=== PATIENT | female | born 1955 | race Caucasian/White ===

== ENCOUNTER 2019-05-21 15:54 | Outpatient (CLI) | payer OTHER ==
[2016-10-18 12:14] VITALS: BP 130/68
--- NOTE | 2019-05-24 16:41 | Diagnostic Imaging Report ---
TOMAS MORGAN [facility] [address] [facility].[address] [address] Report Submission Date: May 21, 2019 4:30:14 PM CDT Patient Study Name: JUANA ORTEGA Date: May 21, 2019 3:59:46 PM CDT Modality Type: DX Gender: F Description: TIBIA FIBULA 2 VIEW : 53 Institution: [facility] Physician: TOMAS MORGAN Exam: Left leg. History: Fall. AP and lateral view of the left leg are submitted. Acute fractures through the distal tibia and fibula are noted. No other signs of fracture or dislocations are identified. Impression: Acute fracture of the distal tibia and fibula. Electronically signed on May 21, 2019 4:30:14 PM CDT by: Lonnie ARNOLD
--- NOTE | 2019-05-24 16:42 | Diagnostic Imaging Report ---
TOMAS MORGAN [facility] [address] [facility] [address] [address] Report Submission Date: May 21, 2019 4:29:39 PM CDT Patient Study Name: JUANA ORTEGA Date: May 21, 2019 3:59:46 PM CDT Modality Type: DX Gender: F Description: ANKLE 3 VIEWS OR MORE : 53 Institution: [facility] Physician: TOMAS MORGAN Exam: Left ankle. History: Fall. AP, lateral and mortise view of the left ankle are submitted. Acute fractures through the distal tibia and fibula are noted with disruption of the ankle mortise noted. Soft tissue swelling is identified. Impression: Bimalleolar fracture with destruction of the ankle mortise. Electronically signed on May 21, 2019 4:29:39 PM CDT by: Lonnie ARNOLD
--- NOTE | 2019-05-24 16:43 | Diagnostic Imaging Report ---
TOMAS MORGAN [facility] [address] [facility].[address] [address] Report Submission Date: May 21, 2019 4:28:57 PM CDT Patient Study Name: JUANA ORTEGA Date: May 21, 2019 3:59:46 PM CDT Modality Type: DX Gender: F Description: FOOT 3 VIEWS OR MORE : 53 Institution: [facility] Physician: TOMAS MORGAN Exam: Left foot. History: Fall 2 weeks ago. AP, lateral and oblique view of the left foot are submitted. A fracture through the distal fibula is is noted . Fracture through the medial malleolus is also identified. No other signs of fracture or dislocation is seen. Spur off the plantar surface of the calcaneus is noted. Soft tissue swelling over the foot is noted. Impression: Diffuse osteopenia. Fractures of the ankle. Heel spur. No foot fractures are identified. Electronically signed on May 21, 2019 4:28:57 PM CDT by: Lonnie ARNOLD
== END 2019-05-21 16:04 | disposition home or self-care (01) ==
LOC: RAD 15:54
PROVIDERS: ATTEND Podiatrist Foot & Ankle Surgery
DX: S99.912A Unspecified injury of left ankle, initial encounter (principal); R58 Hemorrhage, not elsewhere classified; X50.9XXA Other and unspecified overexertion or strenuous movements or postures, initial encounter; Y99.9 Unspecified external cause status
CPT/HCPCS: 73590; 73610; 73630

== ENCOUNTER 2019-05-21 17:18 | Emergency (ER) | payer OTHER ==
[2019-05-21] MEDS ORDERED: ORPHENADRINE CITRATE 60 MG/2 ML ML IV ONE (17:43)
--- NOTE | 2019-05-21 17:44 | ED Physician Documentation ---
Lower Extremity Problem - HISTORIAN Historian: patient - HPI Stated Complaint: L ankle pain Chief Complaint: Lower Extremity Problem Additional Information: Patient presents to ED with left ankle pain. Patient was seen by Dr. Kline today in clinic. Xrays revealed the left ankle fracture sustained on May 06, 2019 was misaligned and needed reduction. Location of Injury: L ankle Onset: days ago (15) Timing: still present, worse since Duration: constant Where: home Severity: moderate Quality: pain Exacerbated By: walking Relieved By: rest Associated Symptoms: denies: chest pain, shortness of breath - ROS CONST: no problems MS/SKIN/LYMPH: none CVS/RESP: none GI/: none EYES/ENT: none - PAST HX Past History: none Other History: other (copd) Surgeries/Procedures: none Allergies/Adverse Reactions: Allergies Allergy/AdvReac Type Severity Reaction Status Date / Time No Known Allergies Allergy Verified 05/21/19 18:56 - SOCIAL HX Smoking History: cigarettes, greater than 1 pack/day Alcohol Use: none Drug Use: none - FAMILY HX Family History: none - VITAL SIGNS Vital Signs: Vital Signs Temp Pulse Resp BP Pulse Ox 79 15 97/65 97 05/21/19 17:18 05/21/19 17:18 05/21/19 17:18 05/21/19 17:18 - REVIEWED ASSESSMENTS Nursing Assessment Reviewed: Yes Vitals Reviewed: Yes Progress - Progress Progress: Discussed with Dr. Kline. Plan; Conscious sedation for reduction of left ankle. ED Results Lab/Radiology - Orders Orders: ED Orders Category Date Time Status Place IV Lock 1T Care 05/21/19 17:30 Active CHEST 2VIEW [RAD] Stat Exams 05/21/19 Completed LEFT ANKLE [ANKLE 3 VIEWS OR MORE] [RAD] Stat Exams 05/21/19 Ordered CBC/PLATELET/DIFF Routine Lab 05/21/19 Ordered CMP Routine Lab 05/21/19 Ordered 0.9 % Sodium Chloride [Normal Saline] 1,000 ml Med 05/21/19 18:41 Active IV Q1H Midazolam HCl/Pf [Versed] Med 05/21/19 17:58 Once 1 mg IVP NOW ONE Midazolam HCl/Pf [Versed] Med 05/21/19 17:59 Discontinued 5 mg .ROUTE .STK-MED ONE Orphenadrine Citrate [Norflex] Med 05/21/19 17:43 Once 60 mg IV NOW ONE fentaNYL CITRATE/PF [Sublimaze] Med 05/21/19 17:58 Once 75 mcg IV NOW ONE Oxygen Daily Oxygen 05/21/19 18:00 Ordered EKG WITH COMPARISON Stat Ther 05/21/19 Completed Lower Extremity Problem - EXAM General Appearance: no distress Hips: bilateral hip: non-tender, normal inspection, normal range of motion, no evidence of injury Legs: bilateral: non-tender, normal inspection, normal range of motion, no evidence of injury Knees: bilateral: non-tender, normal inspection, normal range of motion, no evidence of injury Ankle: right: non-tender, normal inspection, normal range of motion, no evidence of injury, left: ecchymosis, pain, swelling Foot: right foot: non-tender, normal inspection, normal range of motion, no evidence of injury, left foot: ecchymosis, swelling Neuro/Tendon: normal sensation EENT: JESSEE RESPIRATORY: no resp distress, wheezes (scattered occasional wheeze bilaterall) CVS: reg rate & rhythm, heart sounds normal JOINT: unable to bear weight VASCULAR: no vascular compromise, pulses full/equal NEURO/PSYCH: oriented X3, mood/affect nml SKIN: warm/dry BACK: normal inspection Discharge Clincal Impression: Closed left ankle fracture Qualifiers: Encounter type: subsequent encounter Fracture healing: with malunion Qualified Code(s): S82.892P - Other fracture of left lower leg, subsequent encounter for closed fracture with malunion Referrals: Michael Duarte MD [Primary Care Provider] - 2 Days Additional Instructions: 1. Keep foot elevated at rest. Do not bear weight on left leg. 2. Apply Ice behind left knee to reduce swelling 3. Do not take any aspirin products 4. Follow up with Dr. Kline tomorrow. They will call you with a time 5. Return to ER for new or worsening symptoms Condition: Stable Disposition: 01 HOME, SELF-CARE Decision to Admit: NO Date of Decison to Admit: 05/21/19 Decision Time: 19:19
[2019-05-21] MEDS ORDERED: fentaNYL CITRATE/PF 100 MCG/2 ML INJ. IV ONE (17:58)
[2019-05-21] MEDS ORDERED: MIDAZOLAM HCL 2 MG/2 ML VIAL IVP ONE (17:58)
[2019-05-21] MEDS ORDERED: MIDAZOLAM HCL 5 MG/5 ML VIAL ONE (17:59)
--- NOTE | 2019-05-21 18:38 | Diagnostic Imaging Report ---
PATIENT MR#: [id number] PATIENT PATIENT NAME: PARENT, JUANA Garay DATE OF : 1955 REFERRING PHYSICIAN: Luci Menchaca EXAM DATE: 05/21/2019 ACCESSION NUMBER: [id number] EXAM DESCRIPTION: CHEST 2VIEW Exam: Chest two views. History: Chronic cough. No previous studies are available for comparison. Lung franco are very well aerated without eric consolidation or effusion. Heart and mediastinal con tour are normal. Degenerative changes in the thoracic spine are noted. Impression: No eric consolidation or effusion Read by: Dr. Lonnie Govea Transcribed by: Transcribed Date: Electronically signed by: Dr. Lonnie Govea Date signed: 05/21/2019 6:37:34 PM
[2019-05-21] MEDS ORDERED: 0.9 % SODIUM CHLORIDE 1,000 ML IV ONE (18:41)
[2019-05-21 19:39] LABS: BASOPHILS % 0.4 % (0.0-1.5); NEUTROPHILS # 5.4 # k/uL (1.4-7.7); SEGMENTED NEUTROPHILS % 69 % (39-79)
[2019-05-21 19:40] LABS: ANISOCYTOSIS 1+ (NEGATIVE)
[2019-05-21 19:41] LABS: HYPOCHROMASIA 1+ (NEGATIVE)
[2019-05-21 20:19] VITALS: BP 110/69
[2019-05-22 06:56] LABS: eGFR (Non-African) > 60
--- NOTE | 2019-05-24 06:53 | CONSULTATION REPORT ---
DATE OF CONSULTATION: 05/21/2019 REFERRING PHYSICIAN: SUBJECTIVE: Patient presented to the clinic today with me for a first visit for a left ankle injury that happened on 05/06/2019. She states she was getting out of bed and walking to the bathroom and her foot got caught in the blankets and she tried kicking it off and tripped and fell. She states that she hit the ground and woke up two hours later. It seems that she likely lost consciousness. She denies any pain in the head or bruising of any kind in the head or complaints anywhere in the head. She tried walking on the sore ankle when she woke up and over the next couple of weeks, she was continuing to have some pain. She was able to get into a boot she ordered on [employer] and has been trying to walk around with that with a walker at home. She normally I believe walks without a walker. She states she gets around just fine and has crutches just in case but is not sure if she would do well with crutches or not as she has not used them in a long time. She presented to clinic on May 21 after she was not improving and was evaluated with x-rays and found to have a bimalleolar ankle fracture. This was in need of closed reduction to allow swelling to come down and to prepare her for surgery for open reduction internal fixation as soon as we could get all the clearances needed. She was sent to the ER to be prepared for closed reduction with conscious sedation and under the ER team care and we decided that we would get further imaging studies and labs in preparation for surgery while in the ER to expedite what already is a late surgical fix for this problem. The patient has no further questions or issues at this time. The patient does not admit to any fevers, chills, nausea, vomiting, shortness of breath or chest pain at this time. REVIEW OF SYSTEMS: See above. OBJECTIVE: Vitals: Vitals are being monitored carefully in the ER and she came in with a little bit of low blood pressure, but it has improved while being here and she has been placed on saline as well to improve blood pressure. Vascular: DP and PT pulses 1+. Capillary refill time is less than 3 seconds to the toes of the left foot. There is moderate edema in the foot and lateral ankle left lower extremity. Dermatologic: There is no skin discoloration or abnormal discoloration. There is no blanching for the bone underneath or necrotic changes to the skin at all. There is significant bruising noted around the heel of the left lower extremity as well as at the base of the toes. There are no other concerning skin areas or lesions. There are no open lesions noted. There is warmth noted outside of just around the ankle where the injury was located. Musculoskeletal: There is significant ankle deformity with some valgus deformity of the ankle as well as a little bit of prominent osseous prominence under the medial malleolus area. This is where the tip of the tibia medially is pushing against the skin lightly. This is not causing any sort of discoloration in the skin, however. There is pain on palpation of the medial malleolus just distal to the medial tibia as well as at the lateral malleolus. There is a divot noted where I can palpate a fracture in the lateral malleolus just proximal to the head of the fibula. The ankle is apparently unstable with slight efforts with range of motion. Neurologic: Light touch sensation is intact to the toes. The patient does have pain with range of motion. ASSESSMENT AND PLAN: 1. Displaced bimalleolar fracture of the left ankle. 2. Left ankle pain. After a discussion of the risks and benefits of a closed reduction of the left ankle fracture under conscious sedation by myself as well as with the ER provider regarding the conscious sedation, the patient agreed both by written and verbal consent to go forward with the closed reduction of the left ankle fracture under conscious sedation. The patient was placed on oxygen as well as given IV fluids and was given 75 of Fentanyl and 1 of Versed as well as a muscle relaxer prior to my arrival. The patient then had the closed reduction take place. PROCEDURE: 1. Closed reduction under conscious sedation of the left bimalleolar ankle fracture, displaced. X-ray was in the room and ready to take pictures during the procedure and after to make sure we were able to obtain better correction and maintain correction while applying dressings. Under conscious sedation the deformity was exaggerated, distracted and reduced and checked on x-ray and found to be in improved position after two attempts. This is not perfect position, but this is also two weeks past injury and it is definitely improved from where it was when she came in today. While holding the ankle in a closed reduction position, a layer of cast padding followed by a 4-inch Kerlix followed by more cast padding followed by a posterior mold ready splint and 4 inch and 6 inch Jemal wrap were applied. X-rays were taken a couple of times during the application to make sure the reduction was maintained. A final sugar tong splint was then applied that is 4x30 in size from medial to lateral and held on by 4 inch and 6 inch Jemal wrap as well. This allowed for an appropriate closed reduction maintenance. The patient tolerated the procedure well. The patient was monitored by the nurse in the ER throughout and after the procedure. Vital signs were stable. 2. Application of posterior mold splint and sugar tong splint with Antonio compression dressing. This appropriate compressive dressing with stability was needed to help hold this in appropriate position until surgery or until the next visit. The patient tolerated these procedures well and she knows we are working on obtaining CBC, CMP, EKG and chest x-ray in preparation for surgery. The patient knows that we will work on whatever clearances we need and prepare for surgery either this Monday or early next week as soon as we can get everything cleared for surgery. She is to ice behind the knee and is to stay completely non weightbearing on the left lower extremity. We will consider the idea if we can get approval for a stay after surgery to make sure she can get around okay and for pain control after surgery. If not, we will just need to do outpatient and maybe we could evaluate her with physical therapy prior to surgery. Due to the limited palpation of pulses and her 45-pack year history of smoking, I would like to obtain possible arterial Dopplers prior to surgery. We will consider doing those at her next appointment on Monday. If not, we will see how she is healing and if needed we will further evaluate. At this time a whole lot of motion of the ankle or taking down the stable splints will worsen her chance of maintaining stability of the ankle before surgery. The patient has no further questions and we will plan on seeing her for her preoperative appointment on 05/24/2019 where we will do a full History and Physical exam and we will see her and plan for surgery at that time and go over consent, etc. Stevie Kline D.P.M. Ashley Job#: [id number] [email or web address]
--- NOTE | 2019-05-24 16:44 | Diagnostic Imaging Report ---
MAYELA WINSLOW [facility] [address] [facility].[address] [address] Report Submission Date: May 21, 2019 7:33:02 PM CDT Patient Study Name: JUANA ORTEGA Date: May 21, 2019 6:25:30 PM CDT Modality Type: DX Gender: F Description: ANKLE 3 VIEWS OR MORE : 53 Institution: [facility] Physician: MAYELA WINSLOW Exam: Left ankle. History: Post reduction. Multiple views of the left ankle are submitted and compared to study dated May 21, 2019. Reduce fractures through the distal tibia and fibula are noted. Improved alignment of the ankle mortise is noted. Soft tissue swelling about the ankle is noted. Impression: Casted and reduced fracture of the distal tibia and fibula. Electronically signed on May 21, 2019 7:33:02 PM CDT by: Lonnie ARNOLD
== END 2019-05-21 19:43 | disposition home or self-care (01) ==
LOC: ED 17:18
DX: S82.892P Other fracture of left lower leg, subsequent encounter for closed fracture with malunion (principal); X50.1XXD Overexertion from prolonged static or awkward postures, subsequent encounter; Y92.009 Unspecified place in unspecified non-institutional (private) residence as the place of occurrence of the external cause; Y99.9 Unspecified external cause status
CPT/HCPCS: 71046; 73610; 80053; 85025; 93005; J2250; J2360; J3010; J7030; 96361; 96374; 96375; 99282; 99284; S1016

== ENCOUNTER 2019-05-24 08:23 | Outpatient (CLI) | payer OTHER ==
--- NOTE | 2019-05-27 16:38 | History and Physical Report ---
DATE OF VISIT: 05/24/2019 HISTORY AND PHYSICAL CHIEF COMPLAINT: Left ankle fracture, date of injury 05/06/2019, according to the patient. HISTORY OF PRESENT ILLNESS: The patient states that she was getting of her bed to go to the bathroom on 05/06/2019 and got her foot caught in a blanket and when trying to shake it off, states that she fell and rolled her ankle. She states that she woke up two hours later and is not sure if she passed out or just fell asleep because she was so tired. She states that she tried to walk on the ankle and walked "gingerly." She continued having pain and tried icing and so forth and eventually got herself a boot, which she has been using for at least a few days prior to her visit to see me. She finally decided that the pain was continuing and because of that and bruising, etc., that she would come and have the ankle looked at. She came and saw me on 05/21/2019 in the late afternoon. X-rays were obtained demonstrating a bimalleolar displaced ankle fracture with severe talar valgus tilt. It was encouraged to the patient that we bring her to the ER and check her in, so that we can prepare for a closed reduction under conscious sedation with the help of the ER staff. The patient was in agreement and we took her there to have that done that night. She was placed in a Antonio compression splint and posterior mold with sugar-tong splint for stabilization. She also had labs consisting of a CBC, CMP as well as imaging with an EKG and chest x-ray based on preop protocol. The patient knew that she needs to plan for surgery as this is a very unstable ankle and requires open reduction and internal fixation. The patient knows that we have clearance that we will need to obtain through a primary care provider, which we were able to get scheduled for the upcoming with a nurse practitioner, Lu Navarro. The patient had this appointment and she was instructed that she needed pulmonology clearance due to the abnormal lung sounds in all franco according Lu Navarro and according to the EKG, we recommend a cardiology clearance prior to surgery based on the possibility of old infarct noted on the EKG. The patient understands these things need to happen and we need to get them done as soon as possible as she is already over two weeks after the date of injury and we need to get her ankle fixed as soon as possible. The patient does not admit to any fevers, chills, nausea, vomiting, shortness of breath or chest pain. PAST MEDICAL HISTORY: She denies a history of diabetes, hepatitis, bleeding disorder, AIDS or HIV, any history of anesthesia problems, cardiovascular disease, stroke or substance abuse. She denies any known COPD or pulmonary disease, but this is on her chart listed as COPD. The patient does admit to a smoker's cough/smoker's lungs. She also admits to a tobacco history of one-half to one pack per day times approximately 51 or 52 years she clarifies today. She also states that she drinks alcohol regularly at about four beers per day. She also admits hypertension for which she takes lisinopril/hydrochlorothiazide. The patient also states that after her appointment with Lu Navarro she was placed on a UTI antibiotic or two and also placed on potassium because her potassium was low. Lu Navarro is following those things and they will speak with her regarding any questions about those. PAST SURGICAL HISTORY: The patient had her tubes tied in approximately 1984. She had basically a roto-rooter type surgery for her sinuses in 1998 and admits a lifelong issue with sinus issues. She admitted a ganglion cyst was removed as a teenager on her wrist. She denies any metal in her body or any heart or lung surgeries. FAMILY HISTORY: Her father had hypotension. Her mom was on a pacemaker and a defibrillator and had two strokes and hypertension. She did not have diabetes. Her brother had Parkinson's disease. She denies any known history of anesthesia problems in her family. SOCIAL AND OCCUPATIONAL HISTORY: The patient states that she has one or two stairs into her home. She lives otherwise in a single level home without stairs inside. She is not working. She admits tobacco and alcohol use as noted above. She admits that she normally can walk around fine at home without a cane or walker prior to injury. REVIEW OF SYSTEMS: General: The patient does not admit to any overall weakness or illness. Skin: She denies any rashes or open lesions of the skin. Eyes: No vision changes. She uses glasses due to old age vision according to the patient. Cardiovascular: No history of myocardial infarction and no heart murmurs according to the patient that she is aware of. She had a stress test a long time ago which she believes that she was told she had a couple of small "hernias or ulcers." She is unsure of what they said she had. Gastrointestinal: No Crohn's disease or inflammatory bowel disease or other issues in the intestines or stomach. Neurologic: No numbness and no tingling noted per the patient. Genitourinary: No incontinence and no UTIs that she is aware of, but she states that she was placed on the UTI antibiotic from her appointment on with Lu Navarro, but she does not remember her mentioning any UTI in the appointment. She was told that she was dehydrated. Endocrine: No thyroid issues and no blood glucose issues. Hematologic: No blood disorders she is aware of. Ears, nose and throat: The patient admits to sinus issues all of her life with inflamed sinuses. Pulmonary: She admits "smoker's cough." She has no known lung disease according to her and she is not on oxygen at all. Musculoskeletal: Left hip pain at times and she states her back has been more sore lately due to sitting down more after this injury. She also admits to some pain in the hands and knuckles at times. She denies any joint replacements and any metal in her body. Psychiatric: She admits to anxiety at times, but she is not on any medication for it and she denies any depression. CURRENT MEDICATIONS: She is newly on potassium recommended and prescribed by Lu Navarro yesterday, , due to low potassium from her labs. She is also on a UTI antibiotic that was just prescribed by Lu yes, , 05/23/2019. She has been on lisinopril/hydrochlorothiazide. Please see her medication chart online. ALLERGIES AND REACTIONS: NO KNOWN MEDICINE ALLERGIES OR FOOD ALLERGIES. PERTINENT PHYSICAL EXAM: Mental status: The patient is alert, awake and oriented x3. Head and neck: The patient is atraumatic, normocephalic. There is no tracheal deviation. Eyes: Extraocular movements are intact. Heart: Normal S1 and S2 rhythm are heard. Neurologic: Light touch sensation is intact and symmetric to bilateral lower extremities. She has sensation intact with light touch to the toes, left foot. Ears, nose and throat: There are no obvious masses or pain or discomfort around the ear or the nose at this time. There is no tracheal deviation noted here. The tongue does not deviate when sticking out the tongue and the uvula is visible. There is no obvious gross inflammation. Lungs: Wheezing sounds heard in the left upper lungs, but everywhere else is pretty clear to auscultation today. Vascular: I was able to palpate 2+ dorsalis pedis pulse on the left foot underneath her dressings today. Her capillary refill time is approximately 3 seconds, perhaps 4 seconds to the toes, left foot. There is no hair growth to the toes, left foot. There is mild edema still noted in the distal forefoot underneath the dressings today, left foot. Lymph: There are no palpable lymph nodes pre or postauricular nor underneath the jaw bilaterally. Musculoskeletal: Obviously has pain on palpation at medial and lateral ankles from recent visit. The patient has no other joint or muscular issues that she is aware of outside of occasional left hip pain. This was not evaluated today on physical exam. ASSESSMENT AND PLAN: 1. Left ankle bimalleolar displaced ankle fracture. 2. Smoker. A thorough history and physical was performed today. The patient is being sent for cardiology and pulmonology clearance prior to surgery. The patient has a pulmonology appointment on Monday as well as a cardiology appointment at the [place] as well on Monday next week. These were the soonest we were able to get appointments set for the patient at this time. We are grateful that we could get them as soon as we did. Due to the patient being already over two weeks since the date of injury we are on a time crunch to try and get her into surgery soon. It should be noted that we did a closed reduction in the ER under conscious sedation on the , which for the first time had the medial malleolus and fibula in a little bit better alignment. Obviously, they are still mobile at this time. We went in-depth with the patient today on the plan for general endotracheal anesthesia and a plan for an ankle ORIF (open reduction and internal fixation) with plates and screws on both sides and possible bone graft today. The patient understands these things. We went in-depth with risks and benefits of surgery that include but are not limited to bleeding, infection, under correction, over correction, malunion, need for additional surgery, possible need for external fixation and possible need for removal of hardware, loss of limb and loss of life and the patient has agreed both by written and verbal consent to go forward with the procedure at this time. The patient had a strong description today given of the plan for surgery and the plan for a posterior mold splint and possible sugar-tong splint for one to two weeks after surgery followed by a cast for an additional six to eight weeks. The patient knows that she will be nonweightbearing likely for at least six weeks. We are contacting physical therapy to see if there is any chance they can meet with the patient prior to surgery to see if she will get along better with a walker or crutches for after the surgery and also for now to make sure she is getting around safely at home and does not injure herself now that she is not putting weight on one leg. We will need to plan on some sort of DVT prophylaxis, likely aspirin 325 mg b.i.d. for two to three weeks at least after surgery. We will hold off on any aspirin until after surgery as we are close to surgery and do not want to thin her blood too much now. Preop instructions were given to the patient and gone over in-depth regarding not taking nonsteroidal anti-inflammatories, etc., until we are healed going forward for now. The patient knows to bring her medicine the morning of surgery and to only take what she is allowed to take with a sip of water then. She is to take her clearance forms to the green building engineer and sales research analyst that we are giving her today and to ask them to fill them out and return them with any recommendations for her medication changes and if she is cleared for surgery or not. The patient has no further questions or concerns at this time. She was given the opportunity to ask multiple times of any other thoughts or concerns and she is happy with the explanation and understands the need for surgery at this time and she also understands the possible risk of posttraumatic arthritis and possible need for further treatment in the ankle down the road with possible steroid injections or ankle joint replacement or fusion, etc. The patient understands these possibilities well. She also was encouraged strongly to stop smoking and drinking and she refuses, and understands that there is a greater risk of nonhealing of these fractures if she is smoking. She understands the risks very clearly and it has been discussed multiple times on the and today. The patient has no further questions or concerns. After reviewing the risks and benefits of surgery as mentioned earlier the patient signed the consent and it was placed in the chart. This was also witnessed by Rocio who was in the room. The patient will be given appropriate pain medication at surgery and was instructed to only take Tylenol at this time and to not take Tylenol after surgery until after she finishes the pain medication I give as it will have Tylenol in it as well. She voiced understanding of this. We decided not to do an arterial Doppler today as we were originally planning as she had fairly good capillary refill time and I was able to palpate a good dorsalis pedis pulse now that some of the swelling had come down in the proximal forefoot area of the left foot today. If for any reason there is concern for bleeding after surgery or in surgery then we will consider a vascular consult in order to have this addressed if needed. At this time we need to move forward with the plan for surgery. The plan for surgery is likely 05/31/2019 as our surgery schedule is full the morning of the which is the day after her last clearance appointment. We will finish obtaining clearances from Lu Navarro, the green building engineer and sales research analyst and hopefully do surgery on May 31, which is a Monday. The patient understands this and knows that she needs to be without food or drink the night before. The patient has no further questions and we will see her for surgery next week. She knows she can call with any questions. Ximena RezaPRosendoM. (Dictated/not signed) /[employer] [id number] /mab MTDD
== END 2019-05-24 08:43 ==
LOC: POD 08:23
PROVIDERS: ATTEND Podiatrist Foot & Ankle Surgery
DX: S82.842A Displaced bimalleolar fracture of left lower leg, initial encounter for closed fracture (principal); F17.200 Nicotine dependence, unspecified, uncomplicated; X50.9XXA Other and unspecified overexertion or strenuous movements or postures, initial encounter
CPT/HCPCS: 99213

== ENCOUNTER 2019-06-06 12:56 | Outpatient (CLI) | payer OTHER ==
--- NOTE | 2019-06-12 10:24 | OP Clinic Progress Note ---
DATE OF VISIT: 06/06/2019 SUBJECTIVE: Krysta Conteh is a 64-year-old female presenting with her daughter in the clinic today for her first follow-up visit after surgery that was performed on 05/31/2019 which was for a bimalleolar left ankle fracture that was displaced and comminuted on both sides. The patient had an open reduction and internal fixation with plates and screws performed with bone graft as well from [facility] on 05/31/2019. Her date of injury was 05/06/2019. The patient was originally seen at least two weeks after her original injury when she first came into clinic to have this evaluated and had a closed reduction done in the ER following that visit that evening and after clearances was finally able to get surgery performed as soon as clearances were performed at the earliest date surgery was available here, which was 05/31/2019. Her last clearance appointment was on 05/29/2019. The patient presents today stating that she is feeling well with only mild pain. She is not complaining of needing any extra pain medication or anything like that. She does not admit to any fevers, chills, nausea, vomiting, shortness of breath or chest pain. She states she is feeling good and is mostly using her wheelchair at this time and is considering getting into crutches if she can. She asked today if she can get into a weightbearing cast sometime soon, but I told her she will not be weightbearing for at least eight weeks. The patient understands this. NO KNOWN DRUG ALLERGIES. OBJECTIVE: Vitals: Temperature 97.3 degrees Fahrenheit, heart rate 87, respiration rate 20, blood pressure 98/66. O2 saturation is 95% on room air. Vascular: Palpable DP and PT pulses, left foot. Capillary refill time is less than 3 seconds to the toes of the left foot. There is no edema noted in the left lower extremity. Dermatologic: The medial and lateral skin incisions are well coapted without strangulation. The sites already are appearing to be healing well. There are no signs of necrosis or purulence or erythema or malodor of any kind. The incision sites look great medially and laterally. There are no signs of pressure from the posterior mold splint and she appears to be healing well without any edema and this is doing very well at this time. The lateral incision has a very slight bit of irritation right on the incision line that we will monitor, but this is not of the type that would be erythema and any concern of cellulitis. It appears to be irritation likely from the Xeroform. We made sure not to use Xeroform today. Musculoskeletal: There is slight to moderate pain on palpation noted along the lateral and medial aspects along the incision lines. The patient otherwise is moving her ankle up and down on her own without pain. She has limited range of motion of the ankle however, but that is expected. Neurologic: Light touch sensation is diminished to the toes, left foot. ASSESSMENT AND PLAN: 1. Aftercare following surgery (date of surgery 05/31/2019 ORIF of left ankle bimalleolar fracture). 2. Status post bimalleolar left ankle fracture, displaced, comminuted both sides. The patient had dressings taken down today and lotion applied to all the dry skin around except for on the incision sites. Dressings were then applied consisting of Betadine soaked Adaptic just along the incision line minimally and then 4x4 gauze, Kerlix and her posterior mold splint was reapplied and held down with two layers of 4-inch Jemal wrap. This fit the patient well and the heel was padded extra with an ABD pad. The patient had bony prominences padded appropriately today. We will plan on suture removal as long as the skin is well healed as well as x- rays and a below-knee cast next week at our next visit. Return to clinic next week on Monday at 3 p.m. Depending, we may or may not be able to take all the stitches out and we will make a decision based on how things are looking. If needed we will hold off on the cast for one extra week if the stitches are not able to all come out. We will likely apply Steri-Strips as well next week. The patient has no further questions or concerns. For future reference we have the phone number for Krysta at [phone] and for her daughter Cat at [phone] to call them as needed. We will make sure that she will follow up and that the patient is following instructions with respect to aspirin 325 mg b.i.d. as well as the calcium and vitamin D3 supplement that we encouraged and gave a prescription for at surgery. We will confirm that she is doing this at her next visit. Stevie Kline D.P.M. /Accutypdheeraj [id number] /mab MTDD
== END 2019-06-06 13:35 ==
LOC: POD 12:56
PROVIDERS: ATTEND Podiatrist Foot & Ankle Surgery
DX: Z47.89 Encounter for other orthopedic aftercare (principal); Z98.890 Other specified postprocedural states
CPT/HCPCS: 99212

== ENCOUNTER 2019-06-12 14:47 | Outpatient (CLI) | payer OTHER ==
--- NOTE | 2019-06-12 16:15 | Diagnostic Imaging Report ---
PATIENT MR#: [id number] PATIENT PATIENT NAME: PARENT, JUANA Garay DATE OF : 1955 REFERRING PHYSICIAN: TOMAS MORGAN EXAM DATE: 06/12/2019 ACCESSION NUMBER: [id number] EXAM DESCRIPTION: ANKLE 3 VIEWS OR MORE CLINICAL HISTORY: LEFT ANKLE S/P SURGERY ON 05/31/19 AFTER FX X 4 WEEKS AGO COMPARISON: May 21, 2019. TECHNIQUE: DX left ankle, 3 views Posterior fiberglass splint noted. There has been interval ORIF of the left ankle bimalleolar fracture. Lateral sideplate with transfixion screws secures the lateral malleolar fracture, in excellent anatom ic alignment. Medial sideplate with transfixion screws secures the medial malleolar fracture, in excellent anatomic alignment. A small avulsion fracture is suspected on lateral view, apparently at the lateral aspect of the poste rior tibial malleolus. The ankle mortise is preserved. There is diffuse soft tissue edema. IMPRESSION: 1. Status post medial and lateral malleolar fracture ORIF, with excellent anatomic alignment. 2. Small posterior avulsion fracture, apparently from the posterior tibial malleolus. This may be con firmed with CT. Read by: Dr. Shaan Downey Transcribed by: Shaan Downey Transcribed Date: 06/12/2019 4:14:33 PM Electronically signed by: Dr. Shaan Downey Date signed: 06/12/2019 4:14:33 PM
--- NOTE | 2019-06-17 14:22 | OP Clinic Progress Note ---
DATE OF VISIT: 06/12/2019 SUBJECTIVE: Krysta is a 64-year-old female who presented to the clinic today with her daughter, status post left ankle bimalleolar ankle open reduction and internal fixation which took place on 05/31/2019. Her original date of injury was 05/06/2019. The patient states that she is doing well but having a little bit of more pain on the lateral left ankle. She has done well and denies any issues with falls or any problems with that. She admits that she is taking 325 mg of aspirin twice daily and that she is taking her calcium with vitamin D3 supplement every morning. She was encouraged to continue doing so. She believes that her nutrition is improving slightly as well after discussion about that today also. She admits that she is moving her left leg as much as she can while using the wheelchair and sitting down to try and keep things moving on the left side even though she was in a posterior mold splint. She will continue to do that also. She does not admit to any fevers, chills, nausea, vomiting, shortness of breath or chest pain. OBJECTIVE: Vitals: Temperature 97.9 degrees Fahrenheit, heart rate 99, respiration rate 18, blood pressure 118/59. O2 saturation is 92% on room air. Vascular: Palpable DP and PT pulses, left foot. Capillary refill time is less than 3 seconds to the toes of the left foot. There is no edema noted in the left lower extremity. This is very well controlled with the dressings she has had. Dermatologic: The medial and lateral skin incisions appear well coapted and well healed and the sutures were removed to reveal healed skin edges. There was very mild red irritation on the lateral incision site but there was no warmth or any signs of infection or drainage at this time. I believe this is likely due to the underlying Vicryl or the Betadine that was on the skin. The patient appears to have healed very well on the medial and lateral incision sites and there is no other warmth or signs of infection noted either side. The skin overall has a dry appearance and wrinkling with good sign of decreased swelling. Musculoskeletal: There is moderate pain on palpation noted on the fracture site of the lateral malleolus. There is virtually no pain at palpation on the medial side. There were no other gross abnormalities noted with visual exam today. Neurologic: Light touch sensation is diminished to the toes, left foot. ASSESSMENT AND PLAN: 1. Aftercare following surgery (date of surgery 05/31/2019 ORIF of the left ankle bimalleolar ankle fracture). 2. Status post left ankle bimalleolar fracture open reduction, internal fixation. PROCEDURE #1: Suture removal of medial and lateral incision sites took place today to reveal good healed skin. There is no openings or gaping in the skin edges. These have healed very well without any signs of necrosis. Lotion was applied to the remaining portion of the skin outside of the incision areas on the lower extremity and dressings were applied consisting of a Betadine strip on a nonadherent gauze on the medial and lateral sides for protection at these areas after the suture removal. This was covered and wrapped with a 4-inch Kerlix. PROCEDURE #2: A below-knee cast was applied to the left lower extremity after copious padding was placed appropriately to pad the prominent areas. The patient tolerated the procedure well. The patient did well holding the ankle at 90 degrees when the cast was applied. X-RAYS: Three views of the left ankle were performed today with a very small mild Kerlix dressing prior to her actual dressings and cast application to check these surgical sites. X-rays were reviewed by myself and we are awaiting an official read. The hardware seems to be consistent and in appropriate placement with sufficient anatomical alignment of the fracture sites. There is still some gapping on the medial and lateral fractures, which is typical and expected. The patient, however, looks great on x-ray and consistent with her previous intraoperative x-rays. We will plan on x-rays likely again either in two and half weeks or the visit after that in about four and half weeks. The patient will return to clinic in one week for followup to make sure that she has healed well the holes from the suture and we will cast her at that time for one and half weeks and then see her the Monday before to do a cast application with possible x-rays before. We will then see her in two weeks and two days after that once I am back in town. She is aware that I will be out of town the Monday before through the next week. The patient has no questions or concerns. There is no charge on the procedures as this is part of her global period. The patient has no other questions and we will see her in one week but she was encouraged to continue her aspirin and her vitamin D3 and calcium as discussed today. Stevie Kline D.P.M. /Accutype [id number] /mab MTDD
== END 2019-06-12 15:20 ==
LOC: POD 14:47
PROVIDERS: ATTEND Podiatrist Foot & Ankle Surgery
DX: Z47.89 Encounter for other orthopedic aftercare (principal); Z98.890 Other specified postprocedural states
CPT/HCPCS: 73610

== ENCOUNTER 2019-06-20 12:50 | Outpatient (CLI) | payer OTHER ==
--- NOTE | 2019-06-27 10:19 | OP Clinic Progress Note ---
DATE OF VISIT: 06/20/2019 SUBJECTIVE: Krysta is a 64-year-old female presenting to clinic today with her daughter and is here for aftercare following surgery that was performed on 05/31/2019, being a left ankle open reduction internal fixation of the medial and lateral malleolus fractures. The patient states that she is doing very well. She states that did have one near fall where she put her foot down to catch herself on her cast foot. She said that did hurt a little bit, but she states that her pain is no different than it was before that incident at this time. She states that she is doing well. She does not admit to any fevers, chills, nausea, vomiting, shortness of breath or chest pain. Upon questioning she admits that she is taking aspirin 325 mg twice daily as well as her calcium and vitamin D supplement and she states that she is trying to move her left leg around quite a bit still even though she is using her wheelchair. OBJECTIVE: Vitals: Temperature 97.8 degrees Fahrenheit, heart rate 88, respiration rate 18, blood pressure 88/57. O2 saturation is 94% on room air. The patient's blood pressure is low and we will keep an eye on that and if it continues to be low we will notify her to talk to her primary care. Vascular: Palpable DP and PT pulses, left foot. Capillary refill time is less than 3 seconds to the toes left foot. There is no edema noted, left foot. Dermatologic: Medial and lateral skin incisions appear well healed. There is definitely some xerotic skin and scaling dryness on the incision edges. Underneath the distal aspect of the lateral incision xerotic skin there appears to be a very mild amount of wetness when trying to pull the skin apart. I am unable to pull it apart and it appears to be almost completely healed at this time still. This is left alone and dressings were applied to continue to protect it, just in case it is slightly open still. There are no other concerning lesions. There is no erythema nor red irritation at all at this time. There are no signs of infection at all. There are no signs of dehiscence right now. Musculoskeletal: There is only mild pain on palpation noted on the distal lateral fracture site as opposed to last week when there was quite moderate pain on palpation. There is almost no pain on palpation on the medial side at this time. Neurologic: Light touch sensation is diminished to the toes, left foot. ASSESSMENT AND PLAN: 1. Aftercare following surgery (date of surgery 05/31/2019 open reduction internal fixation of the left ankle bimalleolar ankle fracture.) 2. Status post left ankle bimalleolar fracture open reduction internal fixation. The patient was evaluated today and she appears to be healing well. Despite her little bit of weight she put on her foot that caused a little bit of pain I am not too concerned about any kind of movement at this time as there is not any obvious deformity and her pain is the same as it has been previous to the time she put her foot down with some pressure. Due to the light wetness of the distal aspect of the lateral incision site underneath the scaly skin that appeared very dry there was a Betadine soaked Adaptic placed over that lateral incision followed by 4x4 gauze and Kerlix. PROCEDURE #1: Below knee cast was applied on the left lower leg with a copious amount of padding underneath. The patient tolerated the procedure well. She did a good job holding her ankle at 90 degrees and this will help her with her postop recovering once the cast is done to make sure she has good dorsiflexion amount in the ankle. The patient has no further questions or concerns and states that she is feeling the same as usual and she will return to clinic in one and a half weeks on a week for Monday, which is the Monday before for follow up and then we will cast her again and consider x-rays at that time and then see her in two and a half weeks after that. She knows that I will be out of town during that two and a half weeks. We will see her in a week and a half. Stevie Kline D.P.M./Accutype [id number] R: 06/26/19 /mab MTDD
== END 2019-06-20 13:20 ==
LOC: POD 12:50
PROVIDERS: ATTEND Podiatrist Foot & Ankle Surgery
DX: Z47.89 Encounter for other orthopedic aftercare (principal); Z98.890 Other specified postprocedural states

== ENCOUNTER 2019-07-01 12:52 | Outpatient (CLI) | payer OTHER ==
--- NOTE | 2019-07-01 14:14 | Diagnostic Imaging Report ---
PATIENT MR#: [id number] PATIENT PATIENT NAME: PARENT, JUANA Garay DATE OF : 1955 REFERRING PHYSICIAN: TOMAS MORGAN EXAM DATE: 07/01/2019 ACCESSION NUMBER: [id number] EXAM DESCRIPTION: ANKLE 3 VIEWS OR MORE Exam: Right ankle 3 views Indication: ORDER STATES SURGERY FOLLOW UP; PT STATES SURGERY 1 MONTH AGO (Hx) / Note time : 07/01/2019 1:25:22 PM User : Arcelia fay ORDER STATES SURGERY FOLLOW UP; PT STATES SURGERY 1 MONTH AGO ( DICOM Hx) (DICOM Hx) ankle pain Findings: 3 views of the right ankle compared to prior from June 12 2019 internal stabilization of the dis riki tibia and fibula with bony plate and screws. Bony demineralization is present. Fiberglass cast has been removed . No hardware complication is seen. There is a spur off the plantar aspect of the calcaneus. Impression:stable post-operative changes Read by: Dr. Sadiq Ellis Transcribed by: Transcribed Date: Electronically signed by: Dr. Sadiq Ellis Date signed: 07/01/2019 2:13:25 PM
--- NOTE | 2019-07-01 14:16 | Diagnostic Imaging Report ---
PATIENT MR#: [id number] PATIENT PATIENT NAME: PARENT, JUANA Garay DATE OF : 1955 REFERRING PHYSICIAN: TOMAS MORGAN EXAM DATE: 07/01/2019 ACCESSION NUMBER: [id number] EXAM DESCRIPTION: FOOT 3 VIEWS OR MORE Exam: Right foot 3 views Indication: ORDER STATES SURGERY FOLLOW UP; PT STATES PAIN IN TOES OVER THE LAST FEW DAYS (Hx) / Note time : 07/01/2019 1:26:13 PM User : Arcelia fay ORDER STATES SURGERY FOLLOW UP; PT STATES PAIN IN TOES OVER THE LAST FEW DAYS (DICOM Hx) (DICOM Hx) Findings: 3 views of the right foot compare depart from May 21 2019 showpostoperative changes with hardwa re in the distal tibia and fibula. Bony demineralization is demonstrated. There is no acute fracture or subluxation. T here is a spurr off the plantar aspect of the calcaneus. Impression: Bony demineralization Post-operative change Read by: Dr. Sadiq Ellis Transcribed by: Transcribed Date: Electronically signed by: Dr. Sadiq Ellis Date signed: 07/01/2019 2:15:25 PM
--- NOTE | 2019-07-03 15:22 | OP Clinic Progress Note ---
DATE OF VISIT: 07/01/2019 SUBJECTIVE: Krysta is a 64-year-old female presenting to the clinic today for aftercare following surgery that was performed on 05/31/19 consisting of a left ankle medial and lateral open reduction, internal fixation of the ankle. She states that she is doing great except for some throbbing that is making it hard for her to sleep. She is struggling to sleep at night but finally in the early hours of the morning she is able to fall asleep for a little while. She does not admit to any other issues except for that she states she caught her foot on the ground and bent her toes downward and has some pain at the base of the toes on the left foot. She denies any bruising but acknowledges that there is significant swelling. She does not admit to any other fevers, chills, nausea, vomiting, shortness of breath or chest pain. OBJECTIVE: Vitals: Temperature 97.4 degrees Fahrenheit, heart rate 89, respiration rate 16, blood pressure 95/62. O2 saturation is 95% on room air. Vascular: Palpable DP and PT pulses, left foot. Capillary refill time is less than 3 seconds to the toes of the left foot. There is no edema noted in the distal left foot near the toes. Dermatologic: Medial and lateral skin incisions appear very well healed. There is some mild stable eschar noted along the left lateral incision where we can peel off a tiny bit and see a little bit of wet tissue underneath. We will continue to dress this and keep it free of any washing or cleaning at this time in a shower, etc. Otherwise the skin appears very well healed. There is no erythema, warmth or any signs of infection medially or laterally. There are no other skin concerns noted on the left lower extremity or foot. Musculoskeletal: There is very mild pain on palpation noted at the distal lateral ankle at the fracture site area and almost no pain on the medial side when pressing. This is greatly improved since her last visit. There is some pain on palpation noted in the distal forefoot near the base of the second and third toes, left foot closer to the metatarsal heads. There is slight pain with range of motion as well at the metatarsophalangeal joint. Neurologic: Light touch sensation is diminished to the toes, left foot. ASSESSMENT AND PLAN: 1. Aftercare following surgery (date of surgery 05/31/19 open reduction, internal fixation of the left ankle bimalleolar ankle fracture). 2. Left foot pain. PROCEDURE #1: A below-knee cast was removed, left lower extremity. PROCEDURE #2: A below-knee cast was applied to the left lower extremity with a copious amount of cast padding. The patient tolerated these procedures well. The patient was sent for x-rays between having the cast removed and having the cast applied. X-rays were reviewed of the foot and ankle today. We obtained foot x-rays to make sure there was no evidence of injury from her stubbing and plantar flexing her toes excessively causing pain that is still there and she did not have anything show up on x-ray today. The ankle x-rays were taken and show to me some improvement with fracture healing across the fracture with an increased osseous development in the fracture site. This is visible on medial and lateral sites according to my eyes. There may be some evidence of a slight bit of backing out of the medial home-run screw which we will continue to monitor. It is not causing any issues at the skin or any sort of problems at all at this time. The patient was made aware of this today and knows we will watch that. The patient will keep this clean, dry and intact and continue to stay off of it at this time and to continue using aspirin 325 mg b.i.d. and the vitamin D and calcium pills. The patient will continue doing all these things and we will have her return to the clinic in 2-1/2 weeks on where we will take off the cast and reapply another one at that time. We will likely not do x-rays the next visit but the visit after that. The patient had no further questions at this time. It should be noted that the patient also had the pain on the left foot that is new that we will charge her for a normal visit today even though it is aftercare following surgery as we were looking at a new problem for her on that left foot and also obtained x-rays of the left foot because of that. We will see the patient in 2-1/2 weeks. Anya Reza Job#: [id number] MTDD
== END 2019-07-01 13:22 ==
LOC: POD 12:52
PROVIDERS: ATTEND Podiatrist Foot & Ankle Surgery
DX: M79.672 Pain in left foot (principal); Z48.817 Encounter for surgical aftercare following surgery on the skin and subcutaneous tissue
CPT/HCPCS: 29405; 73610; 73630; 99213

== ENCOUNTER 2019-07-18 13:31 | Outpatient (CLI) | payer OTHER ==
--- NOTE | 2019-07-19 17:27 | OP Clinic Progress Note ---
DATE OF VISIT: 07/18/2019 SUBJECTIVE: Krysta Conteh is a 64-year-old female presenting today to clinic for aftercare following surgery as well as dermatophytosis of her nails, so she is going to be charged for a visit because of having the toenails evaluated and trimmed today. The patient states that she is doing well but states that overall she is feeling very weak today and out of it. She is short of breath with any activity while she tried to wipe down her own leg with a cloth today. She states that she feels like she might have an earache and is overall just not feeling great. This is concerning as her blood pressure is low and her heart rate is tachycardic. The patient does not want to stay here in the hospital but understands that I am quite concerned and we are going to send her to the ER after we finish, and she agrees to do so. She does not admit to any fevers, chills, nausea, vomiting, shortness of breath or chest pain at this time. She did obviously show some shortness of breath today, however, with any activity. She is doing well staying off of her foot but admits that she is only drinking about 24 ounces of water a day which is an improvement but still not enough and she is not eating hardly at all. She had half of a microwave dinner the other night and the other day she had supper early, and on another day half of a Boost shake for the whole day. She is just not eating and being nourished enough. She is looking quite weak. OBJECTIVE: Vitals: Temperature 97.2 degrees Fahrenheit, heart rate 103, respiration rate 20, blood pressure 78/44. O2 saturation is 100% on room air. Recheck of heart rate and blood pressure showed a heart rate of 94 and a blood pressure of 77/55 several minutes later. Vascular: Palpable DP and PT pulses, left foot. Capillary refill time is less than 3 seconds to the toes of the left foot. There is no edema noted, left foot, near the toes. Dermatologic: Medial and lateral skin incisions are very well healed with mild stable eschars noted along the left lateral incisions still which have mostly completely come off now. There is no wet tissue at this time and it appears completely healed. The site was washed and lotion applied. There are no other skin abnormalities or concerns, left foot or ankle. The patients toenails are long, thick and discolored bilateral feet and she would like them trimmed. Musculoskeletal: There is very mild pain on palpation still noted on the distal lateral aspect near the lateral malleolus ankle fracture site. There is virtually no pain on palpation on the medial malleolus at this time. She feels good moving her ankle up and down and turning it around while having the cast off today without any weight on it. Overall she states that the pain is 2/10 with palpation in the lateral malleolus fracture site area and very mild to any at all on the medial malleolus side. Neurologic: Light touch sensation is diminished to the toes, left foot. ASSESSMENT AND PLAN: 1. Aftercare following surgery (date of surgery 05/31/19 open reduction, internal fixation of the left ankle bimalleolar ankle fracture. It should be noted that there was a posterior malleolar fracture component which was small and noted but not treated). 2. Dermatophytosis of toenails bilaterally. PROCEDURE #1: Toenail trimming of toenails #1 through #5 bilateral feet were performed today with nail nippers without incident. This was the only thing that should be charged today for her visit, is her visit and toenail trimming. PROCEDURE #2: This is not chargeable. The below-knee cast was removed appropriately. PROCEDURE #3: A below-knee cast was then applied to the left lower extremity with an appropriate amount of cast padding, which is also no charge as this is part of her global period in aftercare following surgery. Again, her surgery was performed on 05/31/19. The patient did not have x-rays today, however, the plan is to have her back in 1-1/2 weeks and we will see her back in 1-1/2 weeks on 07/29/19 and get x-rays at that time when we remove her cast. Assuming this continues to look great we will likely switch her to a boot at that time so that we can begin getting her putting some weight on that left ankle and leg, and right, and get her out of the wheelchair. She is becoming quite weak and the plan will be to also begin Physical Therapy right away when we see her next time in a week and a half so that we can have her begin walking with the help of Physical Therapy only and not before. She understands that that will be very important to make sure she is strong enough to start walking around again. She admits that she is taking the vitamin D and calcium as well as the aspirin as directed. The patient understands that again we are sending her to the ER today after having a conversation with Dr. Duarte on the phone today and letting him know that the blood pressure and heart rate, and he recommended strongly also that she go to the ER and get some fluids and have her checked out. She understands and agrees to do so. Dr. Duarte will plan on following up with her after the ER visit soon to keep an eye on her closely. He understands also that we will be getting her into physical therapy soon. There are no other questions or concerns and we will have her return to the clinic in 1-1/2 weeks to do x-rays and hopefully switch to a boot. Also of importance, we are working on a prescription for an [employer] bone stimulator that she will hopefully be able to use once she is out of the cast and be able to apply appropriately, I believe, 20 minutes a day or twice a day to try and continue helping bone growth. We will work on that and getting it approved as soon as possible as well, as we have been doing so already. Stevie Kline D.P.M. Natalie Job #[id number] MTDD
== END 2019-07-18 14:01 ==
LOC: POD 13:31
PROVIDERS: ATTEND Podiatrist Foot & Ankle Surgery
DX: Z47.89 Encounter for other orthopedic aftercare (principal); B35.1 Tinea unguium
CPT/HCPCS: 11719; 29405; 99213

== ENCOUNTER 2019-07-18 14:45 | Emergency (ER) | payer OTHER ==
[2019-07-18] MEDS ORDERED: 0.9 % SODIUM CHLORIDE 1,000 ML IV ONE (15:05)
[2019-07-18 15:53] LABS: BASOPHILS % 0.5 % (0.0-1.5); NEUTROPHILS # 4.4 # k/uL (1.4-7.7); SEGMENTED NEUTROPHILS % 61 % (39-79)
[2019-07-18] MEDS ORDERED: POTASSIUM CHLORIDE 20 MEQ TABLET.ER PO ONE (15:53)
[2019-07-18] MEDS ORDERED: POTASS CHLOR 10 mEq/100mL IVPB 10 MEQ/100 ML ML IV ONE (15:53)
--- NOTE | 2019-07-18 16:17 | ED Physician Documentation ---
General Adult - HISTORIAN Historian: patient - HPI Stated Complaint: Low blood pressure Chief Complaint: General Adult Further Comments: yes (64 year old female patient sent over from Dr Kline's office with hypotension. On arrival to ER patient 79/57. Patient denies any CP, SOB, N/V. Reports history of hypokalemia. Does not know current medication. Call to [facility] for medication list. Patient is followed by Dr Palacios in [place] for hypertension.) - ROS CONST: no problems EYES/ENT: none CVS/RESP: none GI/: none MS/SKIN/LYMPH: none NEURO/PSYCH: denies: headache, fainting, dizziness, tingling, numbness, difficulty walking, difficulty with speech, anxiety, depression, other - PAST HX Past History: COPD, hypertension, other (CKD; tibfibula fracture 05/21) Allergies/Adverse Reactions: Allergies Allergy/AdvReac Type Severity Reaction Status Date / Time No Known Allergies Allergy Verified 07/18/19 15:06 Home Medications: Ambulatory Orders Medication Instructions Recorded Labetalol HCl 300 mg PO DAILY 07/18/19 Metoprolol Succinate [Toprol Xl] 50 mg PO BID 07/18/19 Potassium Chloride [Klor-Con 10] 10 meq PO DAILY #30 tablet.er 07/18/19 Torsemide [Demadex] 10 mg PO DAILY 07/18/19 - SOCIAL HX Smoking History: cigarettes - FAMILY HX Family History: No - VITAL SIGNS Vital Signs: Vital Signs Temp Pulse Resp BP Pulse Ox 97.8 F 93 H 16 105/76 98 07/18/19 15:00 07/18/19 15:00 07/18/19 15:00 07/18/19 15:00 07/18/19 15:34 - REVIEWED ASSESSMENTS Nursing Assessment Reviewed: Yes Vitals Reviewed: Yes Progress - Progress Progress: 1748 Patient reports she is only taking her labetalol daily; not bid as prescribed. Reviewed discharge instructions with patient - verbalized understanding, copy of BP given to patient. Reviewed how to take BP log, explained need to take daily KCL and have K level rechecked. ED Results Lab/Radiology - Lab Results Lab Results: Lab Results 07/18/19 07/18/19 07/18/19 15:30 15:04 15:04 WBC 7.10 K/ul K/ul (4.00-12.00) RBC 4.19 M/ul M/ul (3.90-5.20) Hgb 14.3 g/dL g/dL (11.5-16.0) Hct 44.0 % % (34.5-46.5) MCV 105.0 fl H fl (80.0-100.0) MCH 34.1 pg H pg (28.0-34.0) MCHC 32.5 g/dL g/dL (30.0-36.0) RDW 10.6 % L % (11.3-14.3) Plt Count 182 K/mm3 K/mm3 (130-400) Neut % (Auto) 62.0 % % (39.0-79.0) Lymph % (Auto) 21.3 % % (16.0-50.0) [place] % (Auto) 13.2 % H % (0.0-11.0) Eos % (Auto) 3.0 % % (0.0-6.8) Baso % (Auto) 0.5 % % (0.0-1.5) Neut # (Auto) 4.4 # k/uL # k/uL (1.4-7.7) Lymph # (Auto) 1.5 # k/uL # k/uL (0.6-4.0) [place] # (Auto) 0.9 # k/uL # k/uL (0.0-0.9) Eos # (Auto) 0.2 # k/uL # k/uL (0.0-0.6) Baso # (Auto) 0.0 # k/uL # k/uL (0.0-0.5) Seg Neutrophils % 61 % % (39-79) Lymphocytes % 25 % % (16-50) Monocytes % 10 % % (0-11) Eosinophils % 4 % % (0-7) Plt Morphology Comment Normal (NORMAL) Macrocytosis 1+ H (NEGATIVE) RBC Morph Comment Abnormal H (NORMAL) Sodium 134 mmol/L L mmol/L (137-145) Potassium 2.5 mmol/L L* mmol/L (3.5-5.1) Chloride 88 mmol/L L mmol/L (98-107) Carbon Dioxide 31 mmol/L H mmol/L (22-30) Anion Gap 17.5 BUN 30 mg/dL H mg/dL (7-17) Creatinine 1.58 mg/dL H mg/dL (0.52-1.04) Estimated Creat Clear 34 Est GFR ( Amer) 42 L (60 - ) Est GFR (Non-Af Amer) 35 L (60 - ) Glucose 137 mg/dL H mg/dL (74-106) Calcium 10.2 mg/dL mg/dL (8.4-10.2) Magnesium 1.6 mIU/l mIU/l (1.6-2.3) Total Bilirubin 0.8 mg/dL mg/dL (0.2-1.3) AST 61 U/L H U/L (15-46) ALT 30 U/L U/L (0-35) Alkaline Phosphatase 178 U/L H U/L (38-126) Troponin I Total Protein 7.4 g/dL g/dL (6.3-8.2) Albumin 4.0 g/dL g/dL (3.5-5.0) 07/18/19 15:04 WBC RBC Hgb Hct MCV MCH MCHC RDW Plt Count Neut % (Auto) Lymph % (Auto) [place] % (Auto) Eos % (Auto) Baso % (Auto) Neut # (Auto) Lymph # (Auto) [place] # (Auto) Eos # (Auto) Baso # (Auto) Seg Neutrophils % Lymphocytes % Monocytes % Eosinophils % Plt Morphology Comment Macrocytosis RBC Morph Comment Sodium Potassium Chloride Carbon Dioxide Anion Gap BUN Creatinine Estimated Creat Clear Est GFR ( Amer) Est GFR (Non-Af Amer) Glucose Calcium Magnesium Total Bilirubin AST ALT Alkaline Phosphatase Troponin I < 0.012 ng/mL L ng/mL (0.012-0.034) Total Protein Albumin - Orders Orders: ED Orders Category Date Time Status Continuous Pulse Oximetry Q30M Care 07/18/19 15:04 Active CBC/PLATELET/DIFF Stat Lab 07/18/19 15:04 Received CMP Stat Lab 07/18/19 15:04 Completed MAGNESIUM Stat Lab 07/18/19 15:53 Ordered TROPONIN I Stat Lab 07/18/19 15:04 Received UA W/MICRO IF INDICATED Stat Lab 07/18/19 15:04 Ordered 0.9 % Sodium Chloride [Normal Saline] 1,000 ml Med 07/18/19 15:05 Discontinued IV NOW POTASS CHLOR 10 mEq/100mL IVPB [KCL 10 mEq/100 mL IVPB] Med 07/18/19 15:53 Once 20 meq IV NOW ONE Potassium Chloride [Klor-Con M20] Med 07/18/19 15:53 Once 40 meq PO NOW ONE EKG WITH COMPARISON Stat Ther 07/18/19 15:04 Ordered General Adult Physical Exam - PHYSICAL EXAM GENERAL APPEARANCE: [id number] N EENT: eye inspection normal, JESSEE RESPIRATORY: no resp distress, chest non-tender, breath sounds normal CVS: reg rate & rhythm, heart sounds normal, equal pulses, no murmur, no gallop, PMI nml, no JVD, no friction rub, 24 ABDOMEN: soft, no organomegaly, normal bowel sounds, no abdominal bruit, no distension BACK: normal inspection, no CVA tenderness SKIN: normal color, warm/dry, NR, INT, PAL, DR EXTREMITIES: non-tender, normal range of motion, no evidence of injury, no edema, other (left lower extremity with cast noted. ) NEURO: oriented X3, CN's nml as tested, motor nml, sensation nml, mood/affect nml Discharge Clincal Impression: Hypokalemia Hypotension Qualifiers: Hypotension type: other hypotension type Qualified Code(s): I95.89 - Other hypotension Prescriptions: Potassium Chloride [Klor-Con 10] 10 meq PO DAILY #30 tablet.er Referrals: Michael Duarte MD [Primary Care Provider] - 2 Days Condition: Stable Disposition: 01 HOME, SELF-CARE Decision to Admit: NO Decision Time: 17:50
[2019-07-18 18:01] VITALS: BP 103/66
== END 2019-07-18 18:02 | disposition home or self-care (01) ==
LOC: ED 14:45
DX: E87.6 Hypokalemia (principal); I95.89 Other hypotension; F17.210 Nicotine dependence, cigarettes, uncomplicated
CPT/HCPCS: 80053; 83735; 84484; 85025; 96374; 99283; 99284; A9270; J7030; 93005; S1016

== ENCOUNTER 2019-07-29 12:51 | Outpatient (CLI) | payer OTHER ==
--- NOTE | 2019-07-29 17:04 | Diagnostic Imaging Report ---
PATIENT MR#: [id number] PATIENT PATIENT NAME: PARENT, JUANA Garay DATE OF : 1955 REFERRING PHYSICIAN: TOMAS MORGAN EXAM DATE: 07/29/2019 ACCESSION NUMBER: [id number] EXAM DESCRIPTION: ANKLE 3 VIEWS OR MORE CLINICAL HISTORY: Two-month status post ORIF follow-up COMPARISON: June 29, 2019. TECHNIQUE: DX left ankle, 3 views Osseous structures: Stable appearance of medial tibial and lateral fibular ORIF side plates with guerrero sfixing screws, with anatomic alignment and intact hardware. There is generalized osteopenia of disuse. Plantar calca yomaira spur at the plantar fascia insertion, which may predispose to plantar fasciitis. Joint spaces: The ankle mortise appears preserved. Soft tissues: There is decrease of postsurgical soft tissue edema. IMPRESSION: Stable appearance of tibial and fibular ORIF. Read by: Dr. Shaan Downey Transcribed by: Shaan Downey Transcribed Date: 07/29/2019 5:04:08 PM Electronically signed by: Dr. Shaan Downey Date signed: 07/29/2019 5:04:33 PM
--- NOTE | 2019-07-30 17:00 | OP Clinic Progress Note ---
DATE OF VISIT: 07/29/2019 SUBJECTIVE: Krysta is a 64-year-old female presenting to the clinic today for aftercare following surgery that was performed on 05/31/19 consisting of an open reduction, internal fixation of a left ankle bimalleolar fracture (actual trimalleolar but only the bimalleolar component required fixation). The patient states that she is doing well and appears to be feeling much better today. She was sent to the ER last week and was given fluids and potassium as her potassium was low. The patient otherwise seems to be doing well today. The patient is hopeful to get out of the cast and into a boot which she brought at my request in case we decide to move her into a boot at this time. She does not admit to any fevers, chills, nausea, vomiting, shortness of breath or chest pain. OBJECTIVE: Vitals: Temperature 98.0 degrees Fahrenheit, heart rate 78, respiration rate 16, blood pressure 80/40. O2 saturation is 97% on room air. The patient states that she is drinking hardly any water which very well could be part of the reason why her blood pressure is still quite low. She appears much more herself and she is spry with it and does not seem low on energy or anything at this time. Her blood pressure has repeatedly been low but this is still quite low. Vascular: Palpable DP and PT pulses, left foot. Capillary refill time is less than 3 seconds to the toes of the left foot. There is no edema noted, left foot. Dermatologic: The medial and lateral skin incisions are still very well healed and with very mild xerotic peeling skin at different parts of the left lower leg from being in a cast. She does not have any other gross abnormalities noted on the left lower extremity. Musculoskeletal: There is still mild 2-3/10 pain on palpation noted, especially at the lateral malleolus fracture site area as well and 0 to perhaps 1/10 pain on the medial malleolus of the left lower extremity. The patient otherwise is doing well. She has no pain with ankle or subtalar joint range of motion. There were no other gross abnormalities noted. Neurologic: Light touch sensation is diminished to the toes, left foot. ASSESSMENT AND PLAN: 1. Aftercare following surgery (date of surgery 05/31/19 open reduction, internal fixation of the left ankle bimalleolar ankle fracture. Again it should be noted that there was a posterior malleolar fracture component which was small and noted but not treated as it did not require fixation). 2. We discussed with the patient that due to her clinical symptoms of still having some pain with palpation that is significant enough as well as visualization of new x-rays, 3 views, of the left ankle that were performed today that I would like to go ahead and hold off on putting her in a boot yet. I believe that she would benefit from 2 more weeks of being in a cast which would put her total at about 10 to 10-1/2 weeks of being in a cast at that time. That may even be 11 weeks. The patient understands that the x-rays appear to show some improvement on my review of the films but they can still see that there is a little bit of lucency and I can still see the fracture lines in the medial and lateral malleolus fractures. I compared these with the last images and these do look a little bit better but we still have room for improvement. The screws appear to be in approximately the same position as previous without any real change. Things appear to be overall fairly anatomic. I am concerned slightly about the lateral gutter of the ankle joint which appears to be wide a little bit which I believe has been that way since surgery. We also discussed with the patient that she would benefit from Physical Therapy and Occupational Therapy seeing her at her home and beginning efforts to strengthen her legs even in the quadriceps and to prepare her for walking. Hopefully in 2 weeks we will be able to switch her to a boot and begin walking with Physical Therapys assessment and guidance. The patient understands that this is the plan and an order has been written and we will send it to [facility] to go ahead and get that started with nonweightbearing at the left lower extremity this time until we are able to get her into a boot and we may switch her to weight-bearing in 2 weeks from now. PROCEDURE #1: A below-knee cast was removed from the left lower extremity. PROCEDURE #2: A below-knee cast was applied to the left lower extremity with normal cast padding, etc. It should be noted that this is aftercare following surgery and therefore there was no charge for the cast procedures today. Return to the clinic on 08/08/2019 for possible switch to a boot and progression with physical therapy and occupational therapy to be hopefully weight-bearing on the left lower extremity at that time. The patient has no further questions and we will see her on 08/08/2019. ADDENDUM: We spoke with the patient regarding the [employer] bone stimulator and the patient did receive a phone call from them and they are working on checking into her insurance still and hopefully she will receive this soon to try and help with continued bone healing as she has had this for quite some time now and she would definitely benefit from help as this was quite the comminuted fracture, now less than 1 sq cm and gapping on both sides. Stevie Kline D.P.M. Natalie Job#: [id number] MTDD
== END 2019-07-29 13:31 ==
LOC: POD 12:51
PROVIDERS: ATTEND Podiatrist Foot & Ankle Surgery
DX: Z47.89 Encounter for other orthopedic aftercare (principal)
CPT/HCPCS: 73610

== ENCOUNTER 2019-08-08 12:45 | Outpatient (CLI) | payer OTHER ==
--- NOTE | 2019-08-08 17:15 | Diagnostic Imaging Report ---
PATIENT MR#: [id number] PATIENT PATIENT NAME: PARENT, JUANA Garay DATE OF : 1955 REFERRING PHYSICIAN: TOMAS MORGAN EXAM DATE: 08/08/2019 ACCESSION NUMBER: [id number] EXAM DESCRIPTION: TOES 2 VIEWS OR MORE CLINICAL HISTORY: STUBBED LT TOE WHEN GETTING OUT OF WHEEL CHAIR IN BATHROOM COMPARISON: July 01, 2019. TECHNIQUE: DX left foot, 1st digit 2 views Osseous structures: There is generalized osteopenia. The osseous structures are intact with no eviden ce of fracture. Joint spaces: The bones are well aligned, without dislocation. No articular surface abnormality is no kacey. Soft tissues: There is normal appearance of the soft tissues with no radiopaque foreign body seen. IMPRESSION: Generalized osteopenia, without evidence of displaced fracture. Read by: Dr. Shaan Downey Transcribed by: Shaan Downey Transcribed Date: 08/08/2019 5:14:34 PM Electronically signed by: Dr. Shaan Downey Date signed: 08/08/2019 5:14:34 PM
--- NOTE | 2019-08-12 12:46 | OP Clinic Progress Note ---
DATE OF VISIT: 08/08/2019 SUBJECTIVE: Krysta is a 64-year-old female presenting to the clinic today for aftercare following surgery that was performed 05/31/2019, consisting of bimalleolar open reduction and internal fixation of the left ankle. The patient states that she is doing well today. She does not admit to having any fever, chills, nausea, vomiting, shortness of breath or chest pain. She does state that she received her bone stimulator in the mail and a call from occupational therapy this morning, but nothing has been arranged to have them come see her as she was in a cast until today still. The patient does not admit to any other issues or concerns and is here for cast removal and to be possibly placed in a boot like we discussed previously. The patient does admit that she did jam her foot on something and hurt her left great toe area. There was a little bit of bruising and she is willing to let me get an x-ray upon my strong request. The patient otherwise is doing well. She does admit that it hurts, however. She also admits that she has pain in her elbow from a fall and states that it definitely hurts, but she can live with it and showed me that she can do range of motion, etc, but would not show me her elbow today. She was encouraged to have it looked at. OBJECTIVE: Vitals: Temperature 98.0, heart rate 94, respiration rate 20, blood pressure 125/85. O2 sat is 97% on room air. Vascular: Palpable DP and PT pulses, left foot. Capillary refill time less than 3 seconds to the toes, left foot. There is mild edema noted in the left great toe and first metatarsophalangeal joint area. Dermatologic: There is a very small round area of ecchymosis noted at the dorsal first metatarsophalangeal joint area of the left great toe. Otherwise, there is no other skin discoloration or problems. The previous skin incision still appear very well healed and look great. There is no sign of erythema or open lesions otherwise. There is some dry xerotic skin left lower extremity. This is expected as she has been in a cast for a while. Musculoskeletal: There is 1-0/10 pain on palpation noted in the left lateral and medial malleolus fracture site areas. The patient has good range of motion in the ankle and subtalar joints that is fair as well as 5/5 muscle strength about the ankle and subtalar joints left. There is some definite pain on palpation noted at the first metatarsal head and the proximal phalanx of the first toe on the left foot today. There were no other gross abnormalities noted. Neurologic: Light touch sensation is diminished at the toes, left foot. ASSESSMENT AND PLAN: 1. Aftercare following surgery (date of surgery 05/31/2019 with open reduction and internal fixation of the left ankle bimalleolar ankle fracture). It should be noted that there was a posttraumatic fracture component which was not requiring fixation. We discussed with the patient that we needed to obtain x-rays to check her left great toe. X-rays two views of the left great toe were obtained and I do not see any signs of fracture or dislocation. There is definite osteopenia noted in the bones of the foot, however. We will call and let the patient know that I do not see any signs of injury and that she should be okay still to begin weightbearing in the boot once physical therapy works with her. I do not have an official read from the radiologist and we will let her know if anything is different. We discussed with the patient that we are okay to move her into a boot. PROCEDURE #1: Below knee cast is removed off the left lower extremity without incident. The patient is being placed in a boot today and was instructed strongly to be nonweightbearing to the left lower extremity until physical therapy and occupational therapy work with her and that they give recommendations and approve her at some point to go ahead and begin walking on her own. At this time she is weak and needs strengthening. She is to be nonweightbearing until physical therapy helps her and she can be weightbearing as tolerated in an ortho boot while working with physical therapy and occupational therapy. The patient understands this is very important. She also notes that we will work on finding information on the bone stimulator and I was able to contact the rep that does not come to our area, but was able to get one for us and she states that she will call the patient again and try and setup a chance to send the patient videos on how to use the bone stimulator. I spoke with the patient today and told her that she will use it for 20 minutes at least once if not twice a day and to angle it around the plate on the medial and latera sides of the left ankle when she does this. She will hear from the [employer] rep soon and the [employer] rep was asked to let me know if there are any issues contacting her. We have also put in already PT and OT orders last week and this was followed up today with Cat Alcazar and occupational therapy now has called her this morning and hope that physical therapy will do do as well soon. We will have the patient return to clinic in one month to make sure she is improving well with physical therapy. I would like her physical therapy to be utilized at home as well as in physical therapy department if possible as well as occupational therapy of both. She needs definite help to get stronger and once they approve full weightbearing then I will also approve for weightbearing without their help once they say she is doing well enough without them. The patient has no further questions or concerns. She was told to continue the aspirin until she starts putting weight on the leg. Stevie Kline D.P.M./Accutypdheeraj [id number] /darby ARNOLD
== END 2019-08-08 13:15 ==
LOC: POD 12:45
PROVIDERS: ATTEND Podiatrist Foot & Ankle Surgery
DX: Z47.89 Encounter for other orthopedic aftercare (principal)
CPT/HCPCS: 29700; 73660; 99212